=== PATIENT | male | born 1975 | race Caucasian/White ===

== ENCOUNTER 2018-08-09 10:36 | Emergency (ER) | payer OTHER ==
[~2018-08-09] VITALS: Ht 165.1 cm; Wt 90.9 kg
[2018-08-09 10:40] VITALS: Ht 165.1 cm; Wt 90.9 kg
[2018-08-09 11:37] LABS: BASOPHIL % 0.4 % (0-2); CALCIUM 8.5 mg/dL (8.5-10.1); CARBON DIOXIDE 26.4 mmol/L (21-32); CHLORIDE SERUM 102 mmol/L (98-107); CREATININE SERUM 0.9 mg/dL (0.7-1.3); GFR1 > 60 mL/min; GLUCOSE SERUM 130 mg/dL (74-106); PLATELET COUNT 148 x10^3mcL (130-400); POTASSIUM SERUM 3.5 mmol/L (3.5-5.1); RED CELL DISTRIBUTION WIDTH 12.5 % (11.5-14.5); SODIUM SERUM 138 mmol/L (136-145)
[2018-08-09 11:42] LABS: ALBUMIN 3.9 g/dL (3.4-5.0); ALKALINE PHOSPHATASE 103 U/L (46-116); ALT/SGPT 32 U/L (16-63); AST/SGOT 17 U/L (15-37); BILIRUBIN TOTAL 0.63 mg/dL (0.20-1.00); TOTAL PROTEIN, SERUM 7.6 g/dL (6.4-8.2)
[2018-08-09 12:40] VITALS: BP 106/80
== END 2018-08-09 12:40 | disposition home or self-care (01) ==
LOC: ED 10:36
PROVIDERS: Emergency Medicine
DX: R55 Syncope and collapse (principal); F41.9 Anxiety disorder, unspecified; Z88.8 Allergy status to other drugs, medicaments and biological substances
CPT/HCPCS: 36415; Q0092